=== PATIENT | female | born 1985 ===

== ENCOUNTER 2023-03-29 06:04 | Emergency (ER) | payer MEDICAID ==
[~2023-03-29] VITALS: Ht 165.1 cm; Wt 103.4 kg
[2023-03-29 06:41] VITALS: BP 145/89
[2023-03-29 06:44] LABS: Source, Urine Clean Catch
[2023-03-29 06:46] LABS: Bilirubin, Urine Neg (Neg); Blood, Urine Neg (Neg); Glucose Qualitative, Urine Neg (Neg); Ketones, Urine Neg (Neg); Leukocyte Esterase, Urine Neg (Neg); Nitrite, Urine Neg (Neg); Protein, Urine Neg (Neg); Urobilinogen, Urine NORM (Normal); pH, Urine 6.5 (5.0-8.0)
[2023-03-29 06:49] LABS: Appearance, Urine Clear (Clear); Color, Urine Pale Yellow (P-Yellow)
== END 2023-03-29 08:17 | disposition home or self-care (01) ==
LOC: ER 06:04
PROVIDERS: Emergency Medicine
DX: O9A.213 Injury, poisoning and certain other consequences of external causes complicating pregnancy, third trimester (principal); S39.91XA Unspecified injury of abdomen, initial encounter; S39.92XA Unspecified injury of lower back, initial encounter; O10.913 Unspecified pre-existing hypertension complicating pregnancy, third trimester; F41.9 Anxiety disorder, unspecified; W18.30XA Fall on same level, unspecified, initial encounter; Z3A.28 28 weeks gestation of pregnancy
CPT/HCPCS: 81003; 81025; 99284